=== PATIENT | male | born 1995 | race Caucasian/White ===

== ENCOUNTER 2017-09-13 19:57 | Emergency (ER) | payer OTHER ==
[~2017-09-13] VITALS: Ht 177.8 cm; Wt 70.3 kg
--- NOTE | 2017-09-13 20:39 | ER Report ---
History and Physical Time Seen By MD: 20:39 Hx. of Stated Complaint: PT REPORTS THAT HE HAS PAIN IN RIGHT SHOULDER DUE TO OVER EXCERCISING. HAS TRIED IBUPROFEN BUT PAIN IS NOT GOING AWAY. HPI/ROS CHIEF COMPLAINT: Right shoulder pain HISTORY OF PRESENT ILLNESS: 21-year-old male patient presents to emergency room with complaint of right shoulder pain. Patient states that he had an injury to the right shoulder several years ago. He states that he had a "grade 3 separation". He states that he was seen by orthopedics of [facility]. He states that he did not have to have surgery at that time. He states that he was lifting weights vigorously 2 days ago. He states that yesterday he had no pain in the shoulder. He states that today however he's had significant amounts of pain. He denies having any numbness tingling to the shoulder. He states that he did take some ibuprofen for this with no improvement. He denies any other injury to the shoulder, denies any falls. REVIEW OF SYSTEMS: Respiratory: No cough, no dyspnea. Cardiovascular: No chest pain, no palpitations. Gastrointestinal: No vomiting, no abdominal pain. Musculoskeletal: As noted above. Allergies: Coded Allergies: No Known Drug Allergies (Unverified , 09/13/17) Home Meds Active Scripts Ketorolac Tromethamine (KETOROLAC TROMETHAMINE) 10 Mg Tab, 10 MG PO Q6H, #20 TAB Prov:MAY KATE EYAL 09/13/17 Past Medical/Surgical History Patient has a past medical history of left leg fracture, right before meals separation. Patient has a surgical history of left leg surgery, deviated septal repair, tonsillectomy. Reviewed Nurses Notes: Yes Hx Substance Use Disorder: No Hx Alcohol Use: No Constitutional Vital Sign - Last 24 Hours 09/13/17 09/13/17 09/13/17 09/13/17 20:21 20:22 20:30 20:45 Temp 98.6 Pulse 72 65 66 Resp 14 B/P (MAP) 141/86 (104) 141/86 Pulse Ox 94 93 93 O2 Delivery Room Air 09/13/17 21:17 Pulse 66 Resp 14 B/P (MAP) 125/95 (105) Pulse Ox 93 O2 Delivery Room Air Physical Exam General Appearance: The patient is alert, has no immediate need for airway protection and no current signs of toxicity. ENT: Tympanic membranes are pearly-trotter, auditory canals are patent. Respiratory: Chest is non tender, lungs are clear to auscultation. Cardiac: regular rate and rhythm Gastrointestinal: Abdomen is soft and non tender, no masses, bowel sounds normal. Musculoskeletal: Neck: Neck is supple and non tender. Extremities have full range of motion and are non tender. Patient does have some tenderness to the right shoulder, has no obvious step-off. Skin: No rashes or lesions. DIFFERENTIAL DIAGNOSIS: After history and physical exam differential diagnosis was considered for shoulder strain, before meals separation, reactivation of previous injury. Medical Decision Making EKG/Imaging Imaging RIGHT SHOULDER: Indication: Pain after lifting weights. Technique: 2 views were obtained. Comparison: None. Findings: There is posttraumatic deformity at the distal end of the right clavicle, which appears subacute or chronic. The scapula and humerus are intact. There is no evidence of dislocation. The visualized skeletal structures are otherwise unremarkable. There is normal mineralization. No periarticular soft tissue deformity is evident. IMPRESSION: There is posttraumatic deformity at the distal end of the right clavicle, which appears subacute or chronic. Additional clinical correlation is recommended. Report Dictated By: Saurabh Burns MD at 09/13/2017 10:08 PM Report E-Signed By: Saurabh Burns MD at 09/13/2017 10:12 PM ED Course/Re-evaluation ED Course Patient was admitted to exam room, history and physical were obtained. Differential diagnoses were considered. On examination patient has tenderness to the right shoulder, there is no obvious step-off or deformity. An x-ray was done of the right shoulder, shows no acute fractures however there does appear to be chronic injury to the distal end of the clavicle. I discussed this with the patient. I believe this is likely where hit injured his shoulder in the past. His my recommendation at this time the patient follow-up with orthopedics in of the [facility]. Patient was placed in a shoulder immobilizer and stated that he did have improved comfort. We will go ahead and discharge patient home at this time. He is to follow-up as directed. He will be given Toradol 10 mg by mouth that he take 4 times a day as needed for pain. The patient received 60 mg of Toradol IM here in the emergency room. Patient verbalized understanding and agreement with plan. Decision to Disposition Date: Sep 13, 2017 Decision to Disposition Time: 21:28 Depart Departure Latest Vital Signs Vital Signs Date Time Temp Pulse Resp B/P (MAP) Pulse Ox O2 Delivery O2 Flow Rate FiO2 09/13/17 21:17 66 14 125/95 (105) 93 Room Air 09/13/17 20:22 98.6 Impression: Primary Impression: Right shoulder pain Condition: Improved Disposition: HOME OR SELF-CARE New Scripts Ketorolac Tromethamine (KETOROLAC TROMETHAMINE) 10 Mg Tab 10 MG PO Q6H, #20 TAB Prov: MAY KATE 09/13/17 Patient Instructions: Shoulder Pain (ED) Additional Instructions: This is likely a reinjury of the ligaments from the AC separation. Wear the sling 23/24 hours a day. Ice the shoulder. Follow up with [facility], call tomorrow to make an appointment. Take the medication as prescribed. Return to the ER if condition worsens. Follow up with your primary care provider with any concerns about pain. Problem Qualifiers Primary Impression: Right shoulder pain Chronicity: acute Qualified Codes: M25.511 - Pain in right shoulder MAY KATE Sep 13, 2017 20:39
[2017-09-13 21:17] VITALS: BP 125/95
[2017-09-13] MEDS ORDERED: KETOROLAC 60 MG/2 ML VIAL IM ONE (21:30)
[2017-09-13] MEDS ORDERED: KET10 PO (21:50)
[2017-09-13] MEDS ORDERED: KETOROLAC TROM 10 MG TAB TH PO ONE (21:50)
--- NOTE | 2017-09-13 22:15 | RADIOLOGY IMAGING REPORT ---
FACILITY: [facility] PATIENT NAME: Hernandez Ruiz : 1995 MR: [id number] V: [id number] EXAM DATE: ORDERING PHYSICIAN: MAY KATE TECHNOLOGIST: Location: [facility] Patient: Hernandez Ruiz : 1995 Visit/Account:[id number] Date of Sevice: 09/13/2017 RIGHT SHOULDER: Indication: Pain after lifting weights. Technique: 2 views were obtained. Comparison: None. Findings: There is posttraumatic deformity at the distal end of the right clavicle, which appears sub acute or chronic. The scapula and humerus are intact. There is no evidence of dislocation. The visual ized skeletal structures are otherwise unremarkable. There is normal mineralization. No periarticular soft tissue deformity is evident. IMPRESSION: There is posttraumatic deformity at the distal end of the right clavicle, which appears s ubacute or chronic. Additional clinical correlation is recommended. Report Dictated By: Saurabh Burns MD at 09/13/2017 10:08 PM Report E-Signed By: Saurabh Burns MD at 09/13/2017 10:12 PM WSN:[id number]
== END 2017-09-13 21:55 | disposition home or self-care (01) ==
LOC: ER 20:37
DX: M25.511 Pain in right shoulder (principal)
CPT/HCPCS: 73030; 96372; 99283; J1885; L3982